=== PATIENT | male | born 1960 | race Caucasian/White ===

== ENCOUNTER 2018-06-19 08:44 | Emergency (ER) | payer BC ==
[~2018-06-19] VITALS: Ht 172.7 cm; Wt 65.8 kg
--- NOTE | 2018-06-19 08:54 | NUR ---
A/OX4, AMBULATORY TO ED BED 11, PT IS COMPLAINING OF LEFT SIDE OF ABDOMEN PAIN, N/V X 2 HRS. PT GUARDING AREA, +FACIAL GRIMACING NOTED. PLACED ON CONT CARDIAC AND POX MONITORING. ALL NEEDS ARE ATTENDED, KEPT COMFOTRABLE. WILL CONT TO MONITOR
--- NOTE | 2018-06-19 09:00 | NUR ---
IV LINE STARTED BLOOD DRAWN AND SENT TO LAB.
[2018-06-19] MEDS ORDERED: ONDANSETRON HCL/PF 4 MG/2 ML VIAL ONE (09:07)
[2018-06-19] MEDS ORDERED: MORPHINE SULFATE INJ 2 MG/ML DISP.SYRIN ONE ×2 (09:07→11:07)
[2018-06-19 09:28] LABS: BASOPHILS % (AUTO) 0.1 % (0.0-2.0); EOSINOPHILS % (AUTO) 0.2 % (0.0-6.0); HEMATOCRIT 52 % (39-51); HEMOGLOBIN 17.4 g/dL (13.5-17.5); LYMPHOCYTES % (AUTO) 8.7 % (20.0-44.0); MEAN CORPUSCULAR HEMOGLOBIN 31 PG (26.0-33.0); MEAN CORPUSCULAR HGB CONC 34 g/dl (31.0-36.0); MEAN CORPUSCULAR VOLUME 90 fL (80-96); MONOCYTES # (AUTO) 0.5 /CMM (0.1-1.30); MONOCYTES % (AUTO) 4.2 % (2.0-12.0); NEUTROPHILS # (AUTO) 9.7 /CMM (1.8-8.9); NEUTROPHILS % (AUTO) 86.8 % (43.0-81.0); PLATELET COUNT (AUTO) 237 /CMM (150-450); RDW COEFFICIENT OF VARIATION 13.5 (11.5-15.0); WHITE BLOOD COUNT (AUTO) 11.2 K/uL (4.3-11.0)
[2018-06-19 09:29] LABS: CALCIUM, SERUM 9.1 mg/dL (8.5-10.1); CREATININE 1.4 mg/dL (0.6-1.3); POTASSIUM 3.6 mmol/L (3.5-5.1)
[2018-06-19] MEDS ORDERED: ONDANSETRON HCL/PF - ER 4 MG/2 ML VIAL IV ONE (09:30)
[2018-06-19] MEDS ORDERED: IV NS 0.9% 1,000 ML BAG IV ONE (09:30)
[2018-06-19] MEDS ORDERED: MORPHINE SULFATE INJ 2 MG/ML DISP.SYRIN IV ONE ×2 (09:30→10:30)
[2018-06-19 09:48] LABS: INR 0.94 (0.87-1.13)
--- NOTE | 2018-06-19 10:24 | NUR ---
PAGED DR. PATEL (UROLOGIST) [phone], LEFT A MESSAGE
[2018-06-19] MEDS ORDERED: CEFTRIAXONE 1GM BAG (ER ONLY) 1 GM/50 ML PIGGYBACK IV ONE (10:30)
[2018-06-19] MEDS ORDERED: TAMSULOSIN 0.4 MG CAP.SR.24H PO ONE (10:30)
[2018-06-19] MEDS ORDERED: CEFTRIAXONE 1 G VIAL ONE (10:59)
[2018-06-19] MEDS ORDERED: TAMSULOSIN 0.4 MG CAP.SR.24H ONE (11:00)
[2018-06-19] MEDS ORDERED: MORPHINE SULFATE INJ 4 MG/ML DISP.SYRIN ONE (11:07)
[2018-06-19 11:15] LABS: APPEARANCE,URINE Clear (CLEAR); BILIRUBIN,URINE Negative (NEGATIVE); BLOOD, URINE Moderate Ery/uL (NEGATIVE); COLOR,URINE Yellow (YELLOW); KETONES,URINE 40 (NEGATIVE); LEUKOCYTE ESTERASE ,URINE Negative (NEGATIVE); NITRITE, URINE Negative (NEGATIVE); PROTEIN,URINE 30 mg/dl (NEGATIVE); UGLUCOSE Negative (NEGATIVE); UROBILINOGEN,URINE 0.2 EU/dL (0.2)
[2018-06-19 11:17] LABS: PH,URINE >9.0 (5.0-8.0)
--- NOTE | 2018-06-19 11:20 | NUR ---
PAGED UROLOGIST Silvio Charles MD FOR CONSULT
[2018-06-19 11:29] LABS: BACTERIA,URINE Few /HPF (None Seen); RBC,URINE 21-50 /HPF (0-2); SQUAMOUS EPITHELIAL CELL,UR Rare /HPF (None Seen); WBC,URINE NONE SEEN /HPF (0-3)
[2018-06-19] MEDS ORDERED: KETOROLAC TROMETHAMINE INJ 30 MG/ML VIAL IV ONE (11:30)
[2018-06-19] MEDS ORDERED: IV NS 0.9% 1,000 ML IV ONE (11:30)
--- NOTE | 2018-06-19 12:35 | NUR ---
Patient discharged to home in stable condition. Written and verbal after care instructions given. Patient verbalizes understanding of instruction.IV removed. Catheter intact and site benign. Pressure and 4x4 applied to site. No bleeding noted.
[2018-06-19 12:38] VITALS: BP 125/60
== END 2018-06-19 12:39 | disposition home or self-care (01) ==
LOC: ER 08:46
DX: N13.2 Hydronephrosis with renal and ureteral calculous obstruction (principal); R11.2 Nausea with vomiting, unspecified
CPT/HCPCS: 36415; 74176; 80048; 81001; 85025; 85730; 87086; 96361; 96365; 96375; 96376; 99285; A4606; J0696; J2270 ×3; J2405 ×2; J7030 ×2; Z7610; 81000-TC